=== PATIENT | male | born 1970 | race Caucasian/White ===

== ENCOUNTER → 2023-01-14 10:30 | Outpatient (BNVA) | payer BC, SELFPAY | PROVIDERS: Visit Provider Family Medicine | DX: R03.0 Elevated blood-pressure reading, without diagnosis of hypertension (principal); N52.9 Male erectile dysfunction, unspecified | CPT/HCPCS: 80053; 80061; 81000; 82306; 82607; 84403; 84439; 84443; 85025 ==